=== PATIENT | female | born 1975 | race Caucasian/White ===

== ENCOUNTER → 2016-12-14 | Outpatient (CLI) | payer BC ==
[~2016-12-14] MED LIST: OXYC-57 PO
== END | disposition home or self-care (01) ==
LOC: C.PAPS 15:30
PROVIDERS: ATTEND Obstetrics & Gynecology
DX: Z01.419 Encounter for gynecological examination (general) (routine) without abnormal findings (principal)

== ENCOUNTER → 2016-12-29 | Outpatient (CLI) | payer BC ==
--- NOTE | 2017-01-01 13:47 | MAMMOGRAPHY REPORT ---
BILATERAL FIRST EVER DIGITAL SCREENING MAMMOGRAM TOMOSYNTHESIS WITH CAD: 12/29/2016 TECHNIQUE: Breast tomosynthesis in addition to standard 2D mammography was performed. Current study was also evaluated with a Computer Aided Detection (CAD) system. COMPARISON: No prior exams were available for comparison. BREAST COMPOSITION: The tissue of both breasts is heterogeneously dense, which may obscure small ma sses. FINDINGS: There is a small cluster of calcifications seen within the right lower inner quadrant, wh ich may be in association with a circumscribed oval 7 mm mass seen on the MLO tomosynthesis images, for which spot magnification views and possible breast ultrasound are recommended for further evalua tion. This could represent calcifications within a cyst. The remainder of both breasts are negative, without suspicious masses, calcifications, or areas of a rchitectural distortion noted. A few scattered bilateral benign-appearing calcifications are again noted. IMPRESSION: ACR BI-RADS CATEGORY 0: INCOMPLETE EVALUATION: NEED ADDITIONAL IMAGING EVALUATION Right lower inner quadrant calcifications which may be in association with a circumscribed mass, for which additional imaging evaluation is recommended. The patient will be called to schedule an appo intment. Approximately 10% of breast cancers are not detected with mammography. A negative mammographic repor t should not delay biopsy if a clinically suggestive mass is present. Sahara Abdul M.D. ah/:12/29/2016 16:03:28 Regional Construction Manager: Chanelle FLANAGAN)(José Manuel), [facility] letter sent: Addl Imaging 0 BI-RADS Code: ACR BI-RADS Category 0: Incomplete Evaluation: Need Additional Imaging Evaluation
== END | disposition home or self-care (01) ==
LOC: C.MAMM 09:32
PROVIDERS: ATTEND Obstetrics & Gynecology
DX: Z12.31 Encounter for screening mammogram for malignant neoplasm of breast (principal); R92.1 Mammographic calcification found on diagnostic imaging of breast; N63 Unspecified lump in breast

== ENCOUNTER → 2017-01-08 | Outpatient (CLI) | payer BC ==
--- NOTE | 2017-01-08 14:00 | MAMMOGRAPHY REPORT ---
UNILATERAL RIGHT DIGITAL DIAGNOSTIC MAMMOGRAM AND TARGETED RIGHT ULTRASOUND: 01/08/2017 CLINICAL HISTORY: Callback from screening mammography for a partially circumscribed mass and associa faina faint cluster of microcalcifications seen on baseline screening mammography. No family history of breast cancer. TECHNIQUE: Spot magnification right CC and ML views were obtained. COMPARISON: Comparison is made to exam dated: 12/29/2016 mammogram - [facility]. BREAST COMPOSITION: The tissue of the right breast is heterogeneously dense, which may obscure smal l masses. FINDINGS: There is a persistent 4 mm cluster of amorphous and smudgy microcalcifications on the spo t magnification right cc view. 1-2 of the calcifications appear to demonstrate layering on the spot magnification MLO view, suggesting benign milk of calcium. However, further evaluation with ultras ound was performed for the associated mass. No other suspicious microcavitation indications are see n in the visualized right breast. There are a few benign coarse calcifications. Targeted ultrasound was performed in the right lower inner quadrant. In the 4:00 right breast, 3 cm from the nipple, there is a lobulated anechoic cystic mass with internal echogenic reflectors, most likely representing associated microcalcifications, measuring 6.9 x 3.0 x 5.6 mm. This most likely represents a cyst and the calcifications most likely represent milk of calcium, however, not all th e calcifications layer on the MLO view. Therefore, definitive characterization with ultrasound guid ed cyst aspiration and/or core needle biopsy is recommended. At the time of targeted ultrasound in the lower inner quadrant of the right breast, the patient poin faina out a mass she was feeling in the right upper outer quadrant. Therefore additional scanning was performed in the 10:00 right breast in the area of lump pointed out by the patient. On palpation, there is an ovoid 2 cm firm mass. On ultrasound, there is dense fibroglandular tissue without a zulay picious solid or cystic mass. IMPRESSION: ACR BI-RADS CATEGORY 4A: LOW SUSPICION FOR MALIGNANCY, TARGETED ULTRASOUND ACR BI-RADS CATEGORY 4A: LOW SUSPICION FOR MALIGNANCY 1. Ultrasound guided cyst aspiration and/or core needle biopsy is recommended for a probable 7 mm c yst with associated milk of calcium/fibrocystic change identified in the 4:00 right breast on ultras ound, thought to correlate with the mammographic mass with associated clustered microcalcifications identified on the patient's baseline screening mammogram. 2. The palpable lump in the upper outer quadrant of the left breast is thought to represent normal dense fiber glandular tissue seen on ultrasound. There is no targeted sonographic evidence of laura de la cruz. Clinical follow-up and continued clinical monitoring is recommended, as biopsy of a clinical ly suspicious mass should not be precluded by negative imaging. These results and recommendations were discussed with the patient at the time of the exam. She tent atively scheduled the right 4:00 breast ultrasound guided cyst aspiration and/or core needle biopsy prior to leaving our department. Approximately 10% of breast cancers are not detected with mammography. A negative mammographic repor t should not delay biopsy if a clinically suggestive mass is present. Maria Ines Herrera M.D. ay/:01/08/2017 10:46:32 Store Hand: Chanelle FLANAGAN)(José Manuel), [facility] letter sent: Abnormal 4/5 BI-RADS Code: ACR BI-RADS Category 4A: Low Suspicion For Malignancy Ultrasound BI-RADS: ACR BI-RADS Category 4A: Low Suspicion For Malignancy
== END | disposition home or self-care (01) ==
LOC: C.MAMM 10:13
PROVIDERS: ATTEND Obstetrics & Gynecology
DX: R92.0 Mammographic microcalcification found on diagnostic imaging of breast (principal); N63 Unspecified lump in breast

== ENCOUNTER → 2017-01-18 | Outpatient (CLI) | payer BC ==
--- NOTE | 2017-01-18 12:48 | MAMMOGRAPHY REPORT ---
UNILATERAL RIGHT DIGITAL DIAGNOSTIC MAMMOGRAM: 01/18/2017 CLINICAL HISTORY: Status post aspiration of the right 4:00 breast mass. TECHNIQUE: Postprocedural right CC and ML views were obtained. COMPARISON: Comparison is made to exams dated: 01/08/2017 ultrasound, 01/08/2017 mammogram, and 017 mammogram - [facility]. BREAST COMPOSITION: The tissue of the right breast is heterogeneously dense, which may obscure smal l masses. FINDINGS: The previously seen mass in the right lower inner quadrant is decreased in size and no aliya macie clearly evident after aspiration of the right 4:00 breast mass. Some residual calcifications ar e still seen in the region of the cyst aspiration. No significant postbiopsy hematoma is seen. IMPRESSION: POST PROCEDURE IMAGING FOR MARKER PLACEMENT Some residual calcifications still present in the right lower inner quadrant status post aspiration of the right 4:00 breast mass. Cytology results are pending. Pending benign cytology results, calli mmend follow-up diagnostic tomosynthesis mammogram and possible ultrasound of the right breast in 6 months. Approximately 10% of breast cancers are not detected with mammography. A negative mammographic repor t should not delay biopsy if a clinically suggestive mass is present. Sahara Abdul M.D. ah/:01/18/2017 11:54:16 Sulphate Tester: Avril FLANAGAN)(José Manuel), [facility] BI-RADS Code: Post Procedure Imaging For Marker Placement
--- NOTE | 2017-01-18 12:48 | MAMMOGRAPHY REPORT ---
ASPIRATION RIGHT BREAST: 01/18/2017 CLINICAL HISTORY: Right 4:00 cyst with associated calcifications. PATIENT CONSENT: The procedure and risks of ultrasound-guided cyst aspiration were discussed in full with the patient. Both oral and written consents were obtained. PROCEDURE DESCRIPTION: With ultrasound guidance, aseptic technique, and 1% lidocaine as a local anes thetic, the mass of concern in the right 4:00 breast was aspirated to near-completion. A small amou nt of pink fluid was obtained and sent to cytology for analysis. Direct pressure was applied to the site immediately post procedure and hemostasis was achieved. The patient tolerated the procedure w ithout complication. She was given wound care instructions. Postprocedural mammograms were obtaine d; see separate report for details. COMPARISON: Comparison is made to exams dated: 01/18/2017 mammogram, 01/08/2017 ultrasound, 01/08/2017 mammogram, and 12/29/2016 mammogram - [facility]. IMPRESSION: ASPIRATION Ultrasound guided aspiration of the right 4:00 breast cyst with associated calcifications. The aspi rated fluid was sent to cytology for analysis. Pending benign cytology results, recommend follow-up diagnostic tomosynthesis mammograms and possible ultrasound in 6 months. Sahara Abdul M.D. ah/:01/18/2017 11:51:30 Attending Technologist: Avril FLANAGAN)(M), [facility] Peanut Separator: Sahara Abdul MD, [facility]
== END | disposition home or self-care (01) ==
LOC: C.MAMM 10:59
PROVIDERS: ATTEND Obstetrics & Gynecology
DX: R92.1 Mammographic calcification found on diagnostic imaging of breast (principal); N60.01 Solitary cyst of right breast

== ENCOUNTER → 2017-07-09 | Outpatient (CLI) | payer BC ==
[2017-07-09 13:03] LABS: BASO % 0.3 %; BASO ABS # 0.03 K/uL (0-0.2); COMPLETE YES; EOS % 1.7 %; HEMATOCRIT 39.1 % (37-47); IG% 0.3 %; LYMPH ABS # 2.58 K/uL (1.2-3.4); MEAN CELL VOLUME 88.5 fL (80-100); MEAN CORPUSCULAR HEMOGLOBIN 29.6 pg (25-34); MEAN CORPUSCULAR HGB CONC 33.5 g/dl (32-36); MEAN PLATELET VOLUME 10.1 fL (7.4-10.4); MONO % 6.9 %; NEUT % 63.8 %; PLATELET COUNT 404 K/uL (130-400); RED BLOOD COUNT 4.42 M/uL (4.2-5.4); WHITE BLOOD COUNT 9.57 K/uL (4.8-10.8)
[2017-07-09 13:46] LABS: CHOLESTEROL/HDL RATIO 3.7; THYROID STIMULATING HORMONE 2.47 uIu/ml (0.300-4.500)
== END | disposition home or self-care (01) ==
LOC: C.LABMFLN 07:11
PROVIDERS: ATTEND Internal Medicine
DX: E78.5 Hyperlipidemia, unspecified (principal); R53.83 Other fatigue

== ENCOUNTER → 2017-07-23 | Outpatient (CLI) | payer BC ==
--- NOTE | 2017-07-23 13:33 | MAMMOGRAPHY REPORT ---
BILATERAL DIGITAL DIAGNOSTIC MAMMOGRAM TOMOSYNTHESIS WITH CAD AND TARGETED LEFT ULTRASOUND: 07/23/2017 CLINICAL HISTORY: 42-year-old woman presents for follow-up in the right breast, for a small cluster o f microcalcifications thought to be associated with a cyst that was previously aspirated and yielded benign cytology results. Previous palpable concern in the left breast. TECHNIQUE: Bilateral breast spot magnification right CC and ML views were also obtained. Tomosynthes is in addition to standard 2D mammography was performed. Current study was also evaluated with a Comp uter Aided Detection (CAD) system. COMPARISON: Comparison is made to exams dated: 01/18/2017 aspiration, 01/18/2017 mammogram, 01/08/2017 ultrasound, 01/08/2017 mammogram, and 12/29/2016 mammogram - [facility]. BREAST COMPOSITION: The tissue of both breasts is heterogeneously dense, which may obscure small mas ses. FINDINGS: There is a 3 mm cluster of round and punctate microcalcifications in the lower inner anter ior right breast. No nodularity or mass is currently seen associated with these benign-appearing ford rocalcifications. Some demonstrate layering on the spot magnification MLO view, suggesting benign mi lk of calcium. This cluster of calcifications has not significantly changed in number or distributio n when comparing to the prior spot magnification views. This most likely represents benign fibrocyst ic change. However, there is a new cluster of faint amorphous and punctate microcalcifications in the upper oute r middle one third of the right breast that is increasingly conspicuous comparing to the prior mammog pelon. In retrospect it may have been present. It currently measures 9.3 mm in maximum dimension. T his cluster microcalcifications does not demonstrate layering and is indeterminate. Definitive jordon cterization with a stereotactic guided biopsy is recommended. An area of possible architectural distortion in the far posterior left breast, along the posterior ni pple line on the MLO view effaced with an additional spot compression tomosynthesis view but further evaluation with ultrasound was also performed in the left breast. No other suspicious calcifications , obvious mass or other areas of architectural distortion are identified bilaterally. Targeted ultrasound was performed in the 2:00 through 4:00, retroareolar and 8:00 through 10:00 axes of the left breast. A few scattered cysts and sonographically normal tissue are identified without e vidence of a suspicious solid or cystic mass. IMPRESSION: ACR BI-RADS CATEGORY 4: SUSPICIOUS, TARGETED ULTRASOUND ACR BI-RADS CATEGORY 4: SUSPICIO US 1. Right breast stereotactic guided biopsy is recommended for a newly visualized 9 mm cluster of pun ctate and amorphous microcalcifications in the upper outer middle one third of the breast. 2. Stable 3 mm cluster of microcalcifications in the lower inner anterior right breast, some of whic h demonstrate layering and were thought to be associated with a benign cyst that had been previously aspirated. Pending benign pathology results from the right breast stereotactic guided biopsy, anothe r six-month follow-up diagnostic mammogram including spot magnification views is read made to to ensu re longer stability. 3. An area of possible architectural distortion in the far posterior left breast, along the posterio r nipple line effaced with an additional spot compression MLO tomosynthesis view. No suspicious sono graphic correlate was identified. This most likely represented normal overlapping tissue. However, pending benign pathology results from the right breast stereotactic biopsy, recommend six-month follo w-up diagnostic tomosynthesis mammograms and possible ultrasound . These results and recommendations were discussed with the patient at the time of the exam. She tenta tively scheduled the right breast stereotactic biopsy prior to leaving our department. Approximately 10% of breast cancers are not detected with mammography. A negative mammographic report should not delay biopsy if a clinically suggestive mass is present. Maria Ines Herrera M.D. ay/:07/23/2017 09:53:58 Food And Nutrition Services Supervisor: Wandy BOUCHER(Carmel)(José Manuel), [facility] letter sent: Abnormal 4/5 BI-RADS Code: ACR BI-RADS Category 4: Suspicious Ultrasound BI-RADS: ACR BI-RADS Category 4: Suspici ous
== END | disposition home or self-care (01) ==
LOC: C.MAMM 07:59
PROVIDERS: ATTEND Internal Medicine
DX: R92.0 Mammographic microcalcification found on diagnostic imaging of breast (principal)

== ENCOUNTER → 2017-11-07 | Outpatient (CLI) | payer BC ==
[~2017-11-07] MED LIST changes: +NAPROXEN PO; -OXYC-57 PO
--- NOTE | 2017-11-07 09:45 | DIAGNOSTIC IMAGING REPORT ---
PELVIC COMPLETE NON OB CLINICAL HISTORY: R10.2 PREOPERATIVE EVALUATION COMPARISON STUDY: None FINDINGS: The uterus measured 10.3 cm maximum. Heterogeneous myometrial echogenicity. 3.0 x 3.5 cm fundal fibroid.. The endometrial stripe measured 5 mm. The right ovary measured 3.4 x 2.9 cm. 2 cm exophytic cyst. Normal vascular flow.. The left ovary measured 3.3 x 3.0 cm. 3.3 cm complex left ovarian cyst versus partial hemorrhagic cyst. Normal vascular flow. There is no ultrasonographic evidence of ovarian torsion. It should be noted that ovarian torsion can be present with normal Doppler ultrasonographic findings. There was no evidence of pathologic free pelvic fluid. IMPRESSION: 1. Heterogeneous uterus with a 3.5 x 3.0 cm fundal fibroid. 2. 2 cm right ovarian hepatic cysts. 3. 3.3 cm complex versus partially hemorrhagic left ovarian cyst. The above report was generated using voice recognition software. It may contain grammatical, syntax or spelling errors. Electronically signed by: Andre Rios M.D. 11/07/2017 9:43 AM Dictated Date/Time: 11/07/2017 9:41 AM
== END | disposition home or self-care (01) ==
LOC: C.ULTRBC 08:21
PROVIDERS: ATTEND Obstetrics & Gynecology
DX: N83.201 Unspecified ovarian cyst, right side (principal)

== ENCOUNTER 2017-11-16 05:32 | Observation (INO) | payer BC ==
[2017-11-05 12:03] VITALS: BMI 27.0
--- NOTE | 2017-11-05 12:29 | PAT Medication Instructions ---
Service Date Nov 05, 2017. Current Home Medication List [Naproxen], 1 TAB PO Q12H PRN for police cadet Instructions For Your Scheduled Surgery - Contact your surgeon if you plan on taking: [Naproxen], 1 TAB PO Q12H PRN for RN NOTHING TO EAT OR DRINK AFTER MIDNIGHT THE NIGHT BEFORE SURGERY If you have any questions please call us at [phone] or [phone] or [phone]
[2017-11-05 13:33] LABS: BASO % 0.3 %; BASO ABS # 0.03 K/uL (0-0.2); EOS % 1.1 %; HEMATOCRIT 36.5 % (37-47); HEMOGLOBIN 12.6 g/dL (12.0-16.0); IG# 0.01 K/uL (0.00-0.02); LYMPH % 30.6 %; LYMPH ABS # 2.76 K/uL (1.2-3.4); MEAN CELL VOLUME 87.1 fL (80-100); MEAN CORPUSCULAR HEMOGLOBIN 30.1 pg (25-34); MEAN CORPUSCULAR HGB CONC 34.5 g/dl (32-36); MEAN PLATELET VOLUME 10.1 fL (7.4-10.4); MONO % 6.2 %; MONO ABS # 0.56 K/uL (0.11-0.59); NEUT % 61.7 %; NEUT ABS # 5.56 K/uL (1.4-6.5); PLATELET COUNT 406 K/uL (130-400); RED CELL DISTRIBUTION WIDTH CV 13.6 % (11.5-14.5); RED CELL DISTRIBUTION WIDTH SD 43.5 fL (36.4-46.3); WHITE BLOOD COUNT 9.02 K/uL (4.8-10.8)
[2017-11-05 13:50] LABS: CALCIUM 8.5 mg/dl (8.5-10.1); CREATININE 0.95 mg/dl (0.60-1.20); POTASSIUM 4.1 mmol/L (3.5-5.1)
[2017-11-16] VITALS (8 sets, daily range): BP systolic 118–142; BP diastolic 81–98; PULSE 57–84; TEMP 36.4–37; O2SAT 96–100; Ht 154.9 cm; Wt 66.1 kg
[~2017-11-16] VITALS: Ht 154.9 cm; Wt 66.1 kg
[2017-11-16] MEDS ORDERED: CEFAZOLIN 2000MG IV PUSH 10 ML IV SCH (06:00)
[2017-11-16] MEDS ORDERED: LACTATED RINGER'S 1000ML 1,000 ML IV SCH ×3 (06:00→13:00)
--- NOTE | 2017-11-16 06:59 | History & Physical Bridge Note ---
H&P Re-Evaluation Bridge Note: I have examined the patient, reviewed the History & Physical and in the interval since the performance of the History & Physical I have noted the following changes of clinical significance: Again, reviewed higher incidence of internal organ injury with severe endometriosis, especially
[2017-11-16] MEDS ORDERED: DEXAMETHASONE SOD INJ 4 MG/ML VIAL ONE (07:09)
[2017-11-16] MEDS ORDERED: ONDANSETRON INJ 2 MG/ML 2 ML VIAL ONE (07:09)
[2017-11-16] MEDS ORDERED: LIDOCAINE HCL 2% 2 ML VIAL (20MG/ML) ONE (07:09)
[2017-11-16] MEDS ORDERED: PROPOFOL IV EMULSION 10 MG/ML 20 ML VIAL IV ONE (07:09)
[2017-11-16] MEDS ORDERED: FENTANYL CITRATE INJ 50 MCG/1 ML 2 ML VIAL ONE ×3 (07:09→10:08)
[2017-11-16] MEDS ORDERED: MIDAZOLAM HCL 1 MG/ML 2ML VIAL ONE (07:10)
[2017-11-16] MEDS ORDERED: HYDROmorphone INJ 2 MG/ML SYR/VIAL ONE (07:10)
[2017-11-16] MEDS ORDERED: METHYLENE BLUE 0.5% 10 ML VIAL ONE (07:11)
[2017-11-16] MEDS ORDERED: BUPIVACAINE 0.5 % 5 MG/1 ML MPF 30ML VIAL ONE (07:11)
[2017-11-16] MEDS ORDERED: ACETAMINOPHEN 1000 MG/100 ML IV IV ONE (07:13)
[2017-11-16] MEDS ORDERED: PHENYLEPHRINE 100MCG/ML 5ML SYR IV PRN (07:30)
[2017-11-16] MEDS ORDERED: ATROPINE SULFATE 0.1 MG/ML 5ML SYR IV PRN (07:30)
[2017-11-16] MEDS ORDERED: ONDANSETRON INJ 2 MG/ML 2 ML VIAL IV PRN ×2 (07:30→10:45)
[2017-11-16] MEDS ORDERED: EpHEDrine SULFATE INJ 50 MG/ML AMP IV PRN (07:30)
[2017-11-16] MEDS ORDERED: KETAMINE HCL INJ 50 MG/ML 10 ML VIAL ONE (08:28)
[2017-11-16] MEDS ORDERED: KETOROLAC TROMETHAMINE 30 MG/ML VIAL ONE (10:20)
[2017-11-16] MEDS ORDERED: NEOSTIGMINE METHYLSULFATE 5 MG/5 ML SYR ONE (10:21)
[2017-11-16] MEDS ORDERED: GLYCOPYRROLATE INJ 0.2 MG/ML VIAL ONE (10:21)
[2017-11-16] MEDS ORDERED: TISSEEL FIBRIN SEALANT 10ML TOP ONE (10:23)
--- NOTE | 2017-11-16 10:32 | [facility] Operative Report ---
Operative Report Operative Date Nov 16, 2017. Pre-Operative Diagnosis Endometriosis and Female pelvic pain Post-Operative Diagnosis Endometriosis and Female pelvic pain Procedure(s) Performed Cystoscopy with Left stent placement Surgeon Dr. Luana Alonzo, Alli Calixto DO Labor Contractor Surgeon(s) None Estimated Blood Loss Minimal Findings Dilated left ureter with likely focal point on distal ureter approx 1-2 cm from the UO. No lesions or masses within the bladder. Specimens None Drains 6 x 26 Double J Stent on left. Anesthesia General Complication(s) None Disposition Stable in OR, care transferred back to Dr. Alonzo to complete the remainder of his procedure. Indications Intraoperative consult for difficulty dissection with dilated left ureter. Description of Procedure Intraoperative consult for urgent cystoscopy and stent placement. Patient found to have difficult anatomy with significant scar tissue. The left and right ureter had been identified during the dissection, but the left ureter was found to be severely dilated. In order to drain the left kidney as well as increase safety by assisting in identification of the left ureter, intraoperative consult was requested. Patient was under general anesthesia in the dorsal lithotomy position. The Patient had been prepped and draped in the regular sterile fashion. A timeout confirming the correct patient had been completed and documented. . A 30 degree Cystoscope was placed into the bladder and the entire bladder was examined. The UO's were identified. Mild squamous metaplasia was noted along the trigone. The left trigone appeared somewhat bulging and an open ended catheter was easily place into the UO. Approx. 1.5 cm proximal to the ureter oriface an considerable narrowing was appreciated with some difficulty advancing the catheter. A wire was then placed and once bypassed, the catheter was advanced. Intraabdominally, the catheter was identified to be within the left ureter. The catheter was advanced to the renal pelvis region and an significant hydronephrotic drip was appreciated. The wire was then left in place, the catheter removed, and a 6 x [26] Double J stent was placed on the left. With the stent in place, the bladder was emptied. The entire bladder was once again examined. No areas of concern were noted. Urine was seen discharging from the right ureter. With stent in place, urine was observed draining from the left ureteral stent. The bladder was left partially full. The scope was removed and a 16 Fr wilkinson catheter was placed and set to drainage. The patient was cleaned and care was transferred to Dr. Alonzo to complete his procedure and dissection. The patient was in stable condition under anesthesia having tolerated my portion of the procedure well with no complications. I was present and participated in all aspects of the procedure. I attest to the content of the Intraoperative Record and any orders documented therein. Any exceptions are noted below.
--- NOTE | 2017-11-16 10:41 | [facility] Post Operative Brief Note ---
Immediate Operative Summary Operative Date Nov 16, 2017. Pre-Operative Diagnosis Endometriosis and Female pelvic pain Post-Operative Diagnosis Severe Endometriosis and Female pelvic pain, Left Hydroureter Procedure(s) Performed Cystoscopy with Left stent placement Surgeon Dr. Luana Alonzo, Alli Calixto DO Sole Sewer Hand Surgeon(s) Dr. Alli Calixto Estimated Blood Loss Minimal Findings Consistent with Post-Op Diagnosis Specimens Uterus, tubes, Left ovary Drains Romano Anesthesia Type General Complication(s) none Disposition Accompanied Pt To Recover: no Disposition: Recovery Room / PACU
[2017-11-16] MEDS ORDERED: BISACODYL 10 MG SUPP PR PRN (10:45)
[2017-11-16] MEDS ORDERED: SIMETHICONE 80 MG CHEW PO PRN (10:45)
[2017-11-16] MEDS ORDERED: OXYCODONE/ACETAMINOPHEN 5-325 TAB PO PRN ×2 (10:45)
[2017-11-16] MEDS ORDERED: ACETAMINOPHEN 325 MG TAB PO PRN (10:45)
[2017-11-16] MEDS ORDERED: KETOROLAC TROMETHAMINE 15 MG/ML VIAL IV. PRN (10:45)
[2017-11-16] MEDS ORDERED: MAGNESIUM HYDROXIDE SUSP 30 ML UDC PO PRN (10:45)
[2017-11-16] MEDS ORDERED: PROMETHAZINE HCL INJ 25 MG in SODIUM CHLORIDE 0.9% 50ML 50 ML IV PRN (10:45)
[2017-11-16] MEDS ORDERED: MEPERIDINE HCL 50 MG/ML CARP IV PRN ×2 (10:45)
[2017-11-16] MEDS ORDERED: PROMETHAZINE HCL INJ 12.5 MG in SODIUM CHLORIDE 0.9% 50ML 50 ML IV PRN (10:45)
[2017-11-16] MEDS ORDERED: IBUPROFEN 600 MG TAB PO PRN (10:45)
[2017-11-16] MEDS ORDERED: ZOLPIDEM TARTRATE 5 MG TAB PO PRN (10:45)
[2017-11-16] MEDS ORDERED: OXYC-57 PO (10:46)
[2017-11-16] MEDS ORDERED: MTR600X PO (10:46)
--- NOTE | 2017-11-16 10:46 | Discharge Instructions ---
Discharge Instructions Date of Service Nov 16, 2017. Admission Reason for Admission: Endometriosis, Female Pelvic Pain Discharge Discharge Diagnosis / Problem: endometriosis, menorrhagia Discharge Goals Goal(s): Routine recovery after surgery Activity Recommendations Activity Limitations: per Instructions/Follow-up section . Instructions / Follow-Up Instructions / Follow-Up POST OPERATIVE: BOWEL FUNCTION/MEDICATIONS: 1. Constipation pain and discomfort are the most common complaints 5-7 days after surgery. Points 2-6 address the things that can help. 2. Chewing gum can help stimulate the gut and help improve digestion and motility. 3. Milk of Magnesia 1-2 times per day until return of bowel function. 4. Colace is a stool softener that helps. Taking this 2-3 times per day until bowel function returns to normal is highly recommended. 5. Dulcolax is a laxative that may be used if several days have passed without a bowel movement. Alternatively Miralax may be used daily instead. 6. Drink plenty of fluids as this will also reduce constipation. 7. Narcotic pain medications will be prescribed by your physician. They are safe to use and we encourage you to use them. If you are not allergic, ibuprofen will also be prescribed. Many patients will be able to transition off of the narcotic medications to ibuprofen by postoperative day 3. ACTIVITY RECOMMENDATIONS: 1. Get plenty of rest and listen to your body. If you are tired, take a nap. 2. You may shower, but do not take a tub bath until you see your doctor at the 2 week post operative visit. 3. Absolutely NO intercourse and nothing in the vagina until you are examined by your doctor at the 6 week visit. At that visit it will be determined when such activities can be resumed. This can range from 6-12 weeks after your surgery depending on healing time. 4. The main physical activity in the first week should be walking. By the second week you can slowly increase activity. There are no limits on walking up and down stairs. 5. Do not lift more than 5-10 lbs for 4 weeks. Remember the "one-handed rule", i.e. if you can lift something with only one hand it's likely okay. 6. Minimize forming yardage control operator like vacuuming and exercising for 4 weeks. "Overdoing it" can lead to incisions not healing, pain and vaginal bleeding , so again, listen to your body. 7. Driving can be resumed when you feel able. Do not drive within 24 hours of taking a narcotic medication. EXPECTATIONS: 1. Vaginal spotting, bleeding and discharge are common after surgery. There may even be an odor to the discharge which is often related to sutures used in the vagina. If you experience heavy vaginal bleeding, call the office number day or night [phone]. 2. Bladder discomfort is common after surgery from the catheter. This usually resolves in 1-2 weeks. 3. By the end of the 3rd or 4th week you should be feeling much better. It may take up to 6 weeks for your energy levels to return to normal. 4. Narcotic medications have side effects such as: dizziness, headache, nausea and/or vomiting. If you suspect your pain medication is causing problems, call our office and we may be able to prescribe an alternate medication. 5. The skin incisions are often covered with a liquid bandage. This will gradually peel off over time. CALL THE OFFICE IF YOU HAVE ANY OF THE FOLLOWIN. Temperature of 101 degrees or higher. 2. Severe abdominal or pelvic pain not relieved by pain medication. 3. Persistent nausea or vomiting. 4. Increased pain with urination or difficulty urinating. 5. Bright red bleeding that soaks more than 1 pad per hour. CONTACT PHONE NUMBERS: Main Office: [phone] Surgical Nurse: [phone] extension [phone] Avoid all tobacco products. If you need help to stop smoking, call [place]'s FREE QUITLINE at . This is a free call. Current Hospital Diet Patient's current hospital diet: Discharge Diet Recommended Diet: Regular Diet Procedures Procedures Performed: TLH, removal of left ovary. Bilateral salpingectomy Cystoscopy with Left stent placement Pending Studies Studies pending at discharge: no Medical Emergencies . Who to Call and When: Medical Emergencies: If at any time you feel your situation is an emergency, please call 911 immediately. . Non-Emergent Contact Non-Emergency issues call your: Wearing Apparel Folder . . "Provider Documentation" section prepared by Nate Alozno. . VTE Core Measure Inpt VTE Proph given/why not?: Tona López, SCD's
[2017-11-16] MEDS ORDERED: SCOPOLAMINE 1.5 MG TDSY TD ONE ×2 (11:04→11:15)
[2017-11-16] MEDS: HYDROmorphone INJ 2 MG/ML SYR/VIAL IV PRN ×6 (11:05→11:30)
[2017-11-16] MEDS ORDERED: PROMETHAZINE HCL INJ 6.25 MG in SODIUM CHLORIDE 0.9% 50ML 50 ML IV ONE (11:15)
--- NOTE | 2017-11-16 12:19 | Anesthesiology Progress Note ---
Anesthesia Post Op Note Date & Time Nov 16, 2017 at 12:18 Vital Signs Pain Intensity: 3 Vital Signs Past 12 Hours Date Time Temp Pulse Resp B/P (MAP) Pulse Ox O2 Delivery O2 Flow Rate FiO2 11/16/17 12:03 63 16 100 11/16/17 12:03 61 16 11/16/17 12:01 153/84 11/16/17 11:58 52 14 98 11/16/17 11:58 53 14 11/16/17 11:56 143/95 11/16/17 11:53 59 15 11/16/17 11:53 58 15 100 11/16/17 11:51 158/94 11/16/17 11:48 36.5 55 17 139/90 (101) 100 Nasal Cannula 2 11/16/17 11:48 68 16 100 11/16/17 11:48 68 16 11/16/17 11:45 139/90 11/16/17 11:43 68 20 11/16/17 11:43 68 20 99 11/16/17 11:40 144/95 11/16/17 11:38 54 10 100 11/16/17 11:38 53 10 11/16/17 11:35 142/95 11/16/17 11:33 60 17 100 11/16/17 11:33 60 17 11/16/17 11:31 142/91 11/16/17 11:28 67 15 18 11:28 69 15 100 11/16/17 11:26 145/95 18 11:23 55 14 11/16/17 11:23 56 14 100 11/16/17 11:22 67 15 100 11/16/17 11:22 65 15 11/16/17 11:20 152/94 11/16/17 11:17 64 14 100 11/16/17 11:17 63 14 11/16/17 11:15 149/93 11/16/17 11:12 63 12 11/16/17 11:12 66 12 100 18 11:11 148/89 18 11:07 63 21 100 11/16/17 11:07 63 21 18 11:06 129/99 11/16/17 11:02 66 10 18 11:02 68 10 100 11/16/17 11:01 156/93 11/16/17 10:57 68 14 11/16/17 10:57 67 14 100 11/16/17 10:55 158/100 11/16/17 10:52 72 18 157/90 100 11/16/17 10:52 37.0 73 12 157/90 100 Oxymask 10 11/16/17 10:52 71 18 11/16/17 06:21 37.0 68 18 125/88 (100) 98 Room Air Notes Mental Status: alert / awake / arousable, participated in evaluation Pt Amnestic to Procedure: Yes Nausea / Vomiting: adequately controlled Pain: adequately controlled Airway Patency, RR, SpO2: stable & adequate BP & HR: stable & adequate Hydration State: stable & adequate Anesthetic Complications: no major complications apparent
--- NOTE | 2017-11-16 12:29 | OPERATIVE REPORT ---
DATE OF OPERATION: 11/16/2017 PREOPERATIVE DIAGNOSES: Endometriosis, menorrhagia, female pelvic pain. POSTOPERATIVE DIAGNOSIS: Severe endometriosis, female pelvic pain, menorrhagia, left hydroureter. PROCEDURE: Total laparoscopic hysterectomy, left salpingo-oophorectomy, right salpingectomy, left ureterolysis, cystoscopy. Additionally, left ureter stent placed by urology. SURGEON: Dr. Alonzo. INDUSTRIAL SPRAYPAINTER: Durga. ESTIMATED BLOOD LOSS: 80 mL. FINDINGS: Severe endometriosis with left hydroureter. SPECIMENS: Uterus, tubes, left ovary. DRAINS: Romano catheter. ANESTHETIC: General. COMPLICATIONS: None. DISPOSITION: Recovery room. OPERATION AND FINDINGS: DESCRIPTION OF PROCEDURE: Carolann was given a general anesthetic, prepped and draped in dorsal lithotomy position in [facility]. IV Ancef given preoperatively and compression stockings applied to her legs. After receiving a general anesthetic bladder was drained with a Romano catheter, VCare sewn into her cervix in the usual fashion. Gloves changed and a supraumbilical incision was made with scalpel. Using open dissection technique, we did a cut down through the subcutaneous fat through the fascia, splitting the rectus muscles and entering the peritoneal cavity without difficulty. Blunt-tipped Lesley trocar placed, balloon inflated with air to stabilize the port and then 10 mm laparoscope used to visualize, CO2 insufflated the abdomen. FINDINGS: Upper abdomen normal, no sign of visceral organ injury. Deep Trendelenburg position obtained. The patient had severe stage IV endometriosis, specifically there were adhesions along the bladder flap line that were severe and thick as well as colonic adhesions attached to the bladder as well. Colonic adhesions were also present on the left side and left ovary was enlarged and abnormal. It appeared to be endometriotic. The right adnexa appeared normal. There was endometriosis in the cul-de-sac as well, primarily in the back wall of the uterus. The right ureter coursed the normal path. We then placed 3 robotic ports, 2 on the right side, 1 on the left and a left upper quadrant accessory port 11 mm bladeless. Robot docked, arm #1 was monopolar jay, arm #2 was bipolar [place], arm #3 was ProGrasp. The procedure was begun first on the right side as the left side was so densely adherent and we felt we made progress on the right side we would increase mobility. Identified the ureter on the right side we then removed the fallopian tube on that right side through the accessory port after removing. The blood supply distal to the right ovary was coagulated with the bipolar [place] then cut with monopolar jay. Same process with the round ligament although this was tied up into the bladder flap as well as we were careful in this respect. We then sharply dissected the bladder flap on the right side away from the uterus. After careful and methodical dissection, I was able to find the cervical vaginal plane and dissected sharply away and then I was able to identify the vessels on the uterine vessels on the right side. Bladder had been dissected away so was able to coagulate the vessels with the bipolar [place] and cut with the monopolar jay. At this stage, I made the decision to remove the left adnexa because of the involvement. The left ureter could not be seen left ovary also enlarged. I did lyse some of the colonic adhesions bluntly on the left side; however, when I did make initially a broad ligament incision lateral to the ovarian artery and vein; however, I could not see the ureter through this so we made a small opening of the peritoneum on the medial side of the broad ligment window in this area and then we identified what was the ureter on the left side. It was significantly dilated. This was significant part of our dissection, following the path of the left ureter, thus I believe her left hydroureter was a result of severe endometriosis. We did track the ureter down to the spot where endometriosis was quite thick and had been present, this area was tied up in adhesive disease which I had freed up earlier. Urology was called, Dr. Calixto, and they placed a stent on that left side which then actually subsequently drained that left ureter so the diameter was less enlarged. Because of now certain location of this, I was able to coagulate the blood supply proximal to the left ovary with the bipolar [place] and then cut with monopolar jay and then carefully dissected away the ovary from the sidewall, coagulated the round ligament, cut this and was able to skeletonize the left uterine vessels. Note, to the best of our ability we removed and freed all the adhesive disease and endometriosis on this left side. Bladder flap was sharply dissected away as adhesions would be described as concrete thick at this stage. At this stage, we had coagulated both the uterine pedicles, I was able to make an anterior colpotomy. The procedure was then continued by completing the colpotomy with the monopolar jay and then removing the uterus and the left adnexa through the vagina. A glove and sponge were placed into the vagina for pneumoperitoneum. After generous irrigation and suction, IV methylene blue was given. It should be noticed hemostasis was excellent at this stage and we were nowhere near that left stent. We then did an instrument exchange, arm #1 became the nicolas needle delivery driver/supervisor, arm #2 became the cobra. We then passed a 12 inch 2-0, 90-day V-Loc suture. The cuff was closed from left to right, right back and right to left ensuring at least 1 cm full thickness bites of vaginal mucosa. We closed from left to right. Suture was then cut so there was no tail and needle removed through the accessory port. After generous irrigation and suction, we did apply 10 mL of Tisseel for hemostasis. We then performed cystoscopy and was able to visualize there were no stitches in the bladder as additionally the right ureter had good strong jets of bluish green dye. The stent was visualized in the left ureter as well. Cystoscope removed and a new Romano catheter placed. Sponge and a glove removed from the vagina. Robot undocked. Instruments removed, gas allowed to escape. Incisions injected with 0.5% Marcaine. Fascia closed with 0 Vicryl in the umbilical and left upper quadrant incision, 4-0 subcuticular Monocryl and closed with Dermabond as well. It should be noted this case took approximately 3 hours due to the difficulty of dissection of endometriosis and the finding of left hydroureter. The patient was sent to recovery room in stable condition. I attest to the content of the Intraoperative Record and any orders documented therein. Any exceptions are noted below. KELL
[2017-11-16] MEDS ORDERED: KETOROLAC TROMETHAMINE 30 MG/ML VIAL IV. PRN (12:45)
[2017-11-16] MEDS ORDERED: IV FLUIDS COMPLETED PRN (12:45)
[2017-11-16] MEDS ORDERED: ROCURONIUM BROMIDE 10 MG/ML 5 ML VIAL IV ONE (14:49)
[2017-11-16] MEDS ORDERED: DOCUSATE SODIUM 100 MG CAP PO SCH (21:00)
--- NOTE | 2017-11-20 08:28 | DISCHARGE SUMMARY ---
Carolann had a total laparoscopic hysterectomy and left salpingo-oophorectomy on 11/16/2016. Operative note is in the chart. It should be noted that she had severe endometriosis and a left ureter stent was placed by urology as she had hydronephrosis and hydroureter related to the endometriosis. Her course in the hospital was uneventful. She was discharged in the same day of surgery. Later in the day of surgery, she was ambulating, tolerating an oral diet, voiding well, pain was well controlled and had no vaginal bleeding. At this stage, she was discharged home given followup both with Dr. Alonzo and with urology to have the stent removed at a later date.
== END 2017-11-16 18:53 | disposition home or self-care (01) ==
LOC: C.ACU 05:32 → C.MS4N 06:10 → ENRESERV 11:38
PROVIDERS: ADMIT Obstetrics & Gynecology; ATTEND Obstetrics & Gynecology
DX: N80.2 Endometriosis of fallopian tube (principal); N83.8 Other noninflammatory disorders of ovary, fallopian tube and broad ligament; N92.0 Excessive and frequent menstruation with regular cycle; R10.2 Pelvic and perineal pain; N13.4 Hydroureter; E78.00 Pure hypercholesterolemia, unspecified; N94.3 Premenstrual tension syndrome; F17.200 Nicotine dependence, unspecified, uncomplicated; Z88.1 Allergy status to other antibiotic agents
CPT/HCPCS: 52332; 58571; S2900

== ENCOUNTER → 2017-12-07 | Outpatient (CLI) | payer BC ==
[~2017-12-07] MED LIST changes: +MTR600X PO; +OXYC-57 PO
--- NOTE | 2017-12-07 12:43 | DIAGNOSTIC IMAGING REPORT ---
ULTRASOUND KIDNEYS AND BLADDER CLINICAL HISTORY: Hydronephrosis. COMPARISON STUDY: No priors. TECHNIQUE: Real-time, grayscale, and color flow sonography of the kidneys and bladder is performed. Images are reviewed in the transverse and longitudinal planes. FINDINGS: Kidneys: There is asymmetric cortical atrophy of the left kidney. The right kidney measures 11.8 x 5.3 x 5.5 cm and the left kidney measures 9.9 x 4.4 x 3.3 cm. There is fullness of the right renal collecting system. Moderate hydronephrosis is seen on the left. A left ureteral stent is in place. No shadowing renal calculi are identified. There is no sonographic evidence of contour deforming renal mass lesion. No perinephric fluid is identified. Bladder: The bladder is normal in appearance. A right ureteral jet is identified. The end of a left ureteral stent is noted. IMPRESSION: 1. There is asymmetric cortical atrophy of the left kidney as compared to the right. 2. There is moderate left hydronephrosis with a left ureteral stent in place. 3. Mild fullness is seen in the right renal collecting system without ottoniel hydronephrosis. 4. The bladder was normal as visualized. Electronically signed by: Chris Hill M.D. 12/07/2017 12:41 PM Dictated Date/Time: 12/07/2017 12:39 PM
== END | disposition home or self-care (01) ==
LOC: C.ULTR 11:13
PROVIDERS: ATTEND Urology
DX: N13.30 Unspecified hydronephrosis (principal); N26.1 Atrophy of kidney (terminal); Z96.0 Presence of urogenital implants

== ENCOUNTER → 2017-12-13 | Outpatient (CLI) | payer BC ==
[2017-12-13 10:14] LABS: HEMATOCRIT 35.5 % (37-47); HEMOGLOBIN 12.2 g/dL (12.0-16.0); MEAN CORPUSCULAR HEMOGLOBIN 29.9 pg (25-34); MEAN PLATELET VOLUME 9.4 fL (7.4-10.4); PLATELET COUNT 382 K/uL (130-400); RED CELL DISTRIBUTION WIDTH CV 13.9 % (11.5-14.5); RED CELL DISTRIBUTION WIDTH SD 44.4 fL (36.4-46.3); WHITE BLOOD COUNT 7.95 K/uL (4.8-10.8)
[2017-12-13 10:23] LABS: MEAN CORPUSCULAR HGB CONC 34.4 g/dl (32-36)
[2017-12-13 10:36] LABS: CREATININE 0.88 mg/dl (0.60-1.20)
== END | disposition home or self-care (01) ==
LOC: C.LAB1850 09:51
PROVIDERS: ATTEND Obstetrics & Gynecology
DX: G89.18 Other acute postprocedural pain (principal)

== ENCOUNTER → 2017-12-31 | Outpatient (CLI) | payer BC ==
[~2017-12-31] MED LIST changes: +CIPR-255 PO; +DIFLUCAN PO; +OXYC7.5T62 PO; +PHEN-775 PO
--- NOTE | 2017-12-31 11:26 | DIAGNOSTIC IMAGING REPORT ---
CHEST 2 VIEWS ROUTINE HISTORY: 42 years-old Female N13.30 Hydronephrosis preoperative exam. No acute chest complaints. COMPARISON: None available TECHNIQUE: PA and lateral views of the chest FINDINGS: Cardiac mediastinal and hilar silhouettes are within normal limits. No pneumothorax, pleural effusion, focal airspace consolidation or overt pulmonary edema. Bones of the chest appear grossly intact. The proximal portion of the left ureteral stent is noted within the left upper abdomen. IMPRESSION: No acute process. The above report was generated using voice recognition software. It may contain grammatical, syntax or spelling errors. Electronically signed by: Wes Fong M.D. 12/31/2017 11:25 AM Dictated Date/Time: 12/31/2017 11:24 AM
[2017-12-31 12:17] LABS: BASO % 0.5 %; BASO ABS # 0.04 K/uL (0-0.2); EOS % 2.1 %; EOS ABS # 0.18 K/uL (0-0.5); HEMATOCRIT 38.2 % (37-47); HEMOGLOBIN 13.2 g/dL (12.0-16.0); IG# 0.02 K/uL (0.00-0.02); LYMPH % 33.3 %; MEAN CELL VOLUME 87.2 fL (80-100); MEAN CORPUSCULAR HEMOGLOBIN 30.1 pg (25-34); MEAN CORPUSCULAR HGB CONC 34.6 g/dl (32-36); MONO % 6.4 %; MONO ABS # 0.54 K/uL (0.11-0.59); NEUT % 57.5 %; NEUT ABS # 4.83 K/uL (1.4-6.5); PLATELET COUNT 439 K/uL (130-400); RED CELL DISTRIBUTION WIDTH CV 14.1 % (11.5-14.5); RED CELL DISTRIBUTION WIDTH SD 44.8 fL (36.4-46.3); WHITE BLOOD COUNT 8.41 K/uL (4.8-10.8)
[2017-12-31 12:48] LABS: ALBUMIN 3.8 gm/dl (3.4-5.0); ALT/SGPT 17 U/L (12-78); AST/SGOT 14 U/L (15-37); BLOOD UREA NITROGEN 14 mg/dl (7-18); CARBON DIOXIDE 25 mmol/L (21-32); CREATININE 0.84 mg/dl (0.60-1.20); GLUCOSE 87 mg/dl (70-99); POTASSIUM 3.7 mmol/L (3.5-5.1); SODIUM 136 mmol/L (136-145)
[2017-12-31 12:50] LABS: ALKALINE PHOSPHATASE 74 U/L (45-117); TOTAL PROTEIN 7.3 gm/dl (6.4-8.2)
== END | disposition home or self-care (01) ==
LOC: C.CPL 10:46
PROVIDERS: ATTEND Urology
DX: N13.30 Unspecified hydronephrosis (principal); I49.9 Cardiac arrhythmia, unspecified

== ENCOUNTER → 2018-01-03 | Day surgery (SDC) | payer BC ==
[2017-12-31 15:51] VITALS: BMI 27.0
[~2018-01-03] VITALS: Ht 152.4 cm; Wt 64.5 kg
[~2018-01-03] MED LIST changes: +ATROPINE SULFATE 0.1 MG/ML 5ML SYR IV PRN; +CIPROFLOXACIN / D5W 400 MG IV SCH; +Cysto-Conray II 17.2% 250ML BOTTLE ONE; +DEXAMETHASONE SOD INJ 4 MG/ML VIAL ONE; +EpHEDrine SULFATE INJ 50 MG/ML AMP IV PRN; +FENTANYL CITRATE INJ 50 MCG/1 ML 2 ML VIAL IV PRN; +FENTANYL CITRATE INJ 50 MCG/1 ML 2 ML VIAL ONE; +HYDROmorphone INJ 1 MG/ML SYR IV PRN; +LABETALOL HCL IV 5 MG/ML 20ML IV PRN; +LACTATED RINGER'S 1000ML 1,000 ML IV SCH; +LIDOCAINE HCL 2% 2 ML VIAL (20MG/ML) ONE; +MEPERIDINE HCL 25 MG/ML CARP IV PRN; +MIDAZOLAM HCL 1 MG/ML 2ML VIAL ONE; -NAPROXEN PO; +ONDANSETRON INJ 2 MG/ML 2 ML VIAL IV PRN; +ONDANSETRON INJ 2 MG/ML 2 ML VIAL ONE; -OXYC-57 PO; +OXYCODONE/ACETAMINOPHEN 7.5-325 TAB PO PRN; +PROPOFOL IV EMULSION 10 MG/ML 20 ML VIAL IV ONE
[2018-01-03 12:33] VITALS: BP 125/84; PULSE 68; TEMP 36.6; O2SAT 99; Ht 152.4 cm; Wt 64.5 kg
--- NOTE | 2018-01-03 13:27 | History & Physical Bridge Note ---
H&P Re-Evaluation Bridge Note: I have examined the patient, reviewed the History & Physical and in the interval since the performance of the History & Physical I have noted the following changes of clinical significance: No changes noted
--- NOTE | 2018-01-03 13:49 | Discharge Instructions ---
Discharge Instructions Date of Service Jan 03, 2018. Admission Reason for Admission: Hydronephrosis Discharge Discharge Diagnosis / Problem: Obstructive uropathy Discharge Goals Goal(s): Decrease discomfort, Improve function Activity Recommendations Activity Limitations: per Instructions/Follow-up section Lifting Limitations: gradually increase as tolerated Exercise/Sports Limitations: gradually increase as tolerated Shower/Bathe: no limitations . Instructions / Follow-Up Instructions / Follow-Up May have blood in urine. May have pelvic discomfort. Call if any issues. Call if any fevers. Current Hospital Diet Patient's current hospital diet: Discharge Diet Recommended Diet: Regular Diet Procedures Procedures Performed: Bilateral retrogrades. Left ureteroscopy. Pending Studies Studies pending at discharge: no Medical Emergencies . Who to Call and When: Medical Emergencies: If at any time you feel your situation is an emergency, please call 911 immediately. . Non-Emergent Contact Non-Emergency issues call your: Primary Care Provider, Urologist Call Non-Emergent contact if: you have a fever, temperature is above 101, temperature is above 101.5, your pain is not controlled, your pain is worsening . . "Provider Documentation" section prepared by Alli Calixto,. .
--- NOTE | 2018-01-03 14:55 | [facility] Operative Report ---
Operative Report Operative Date Jan 03, 2018. Pre-Operative Diagnosis Obstructive Uropathy, History of endometrosis Post-Operative Diagnosis Same, lesion distal ureter. Procedure(s) Performed Cystoscopy with bilateral retrograde pyelogram. Left ureteroscopy, Biopsy lesion left ureter, stent exchange. Surgeon Durga Estimated Blood Loss Minimal Findings Left hydronephrosis with hydroureter. Specimens Biopsy distal ureter Drains 6 x 26 Double J Left Anesthesia Type General Complication(s) none Disposition Recovery Room / PACU Indications Left Hydronephrosis with recent surgery. Stent in place. Risks and benefits discussed at length with patient. Description of Procedure Patient was consented and brought back to the operating room. Patient was placed under anesthesia in the supine position and moved to the dorsal lithotomy position. Patient was prepped and draped in the regular sterile fashion. A time out was completed. A 30degree Cystoscope was placed into the bladder and the entire bladder was examined. The UO's were identified. The Right was cannulized with a catheter and a retrograde pyelogram was completed. No major issues or obstruction. The left stent was grasped and partially removed. A wire was then placed. A retrograde pyelogram was completed. Continued hydronephrosis. Moderate narrowing distal ureter with tortuosity. With the wire in place, a rigid ureteroscope was selected and taken into the left UO. This was taken to the area of narrowing. It was unable to bypass this area. Lesion was noted. May have been vascular or endometrial lesion. this was biopsied. The scope was removed after a second wire placed. A flexible ureteroscope was selected and taken into the left ureter. The entire pelvis and ureter on the left was examined. No masses, lesions, or bj of stricture were noted. It was taken to the distal ureter and multiple images of the lesion were taken. The scope was removed with the wire remaining in place. At this point, a 6 x [26] Double J stent was placed. It was confirmed with fluoroscopy. With the stent in place, the bladder was emptied. The scope was removed. The patient was cleaned, aroused from anesthesia, and transferred to the pacu in stable condition having tolerated the procedure well with no complications. I was present and participated in all aspects of the procedure. The patient will be monitored in the PACU until transferred. I attest to the content of the Intraoperative Record and any orders documented therein. Any exceptions are noted below.
--- NOTE | 2018-01-03 15:21 | Anesthesiology Progress Note ---
Anesthesia Post Op Note Date & Time Jan 03, 2018 at 15:21 Vital Signs Pain Intensity: 0 Vital Signs Past 12 Hours Date Time Temp Pulse Resp B/P (MAP) Pulse Ox O2 Delivery O2 Flow Rate FiO2 01/03/18 15:10 81 16 119/75 99 Room Air 01/03/18 15:01 36.5 83 16 120/72 96 Oxymask 10 01/03/18 12:33 36.6 68 18 125/84 (98) 99 Room Air Notes Mental Status: alert / awake / arousable, participated in evaluation Pt Amnestic to Procedure: Yes Nausea / Vomiting: adequately controlled Pain: adequately controlled Airway Patency, RR, SpO2: stable & adequate BP & HR: stable & adequate Hydration State: stable & adequate Anesthetic Complications: no major complications apparent
[2018-01-03 15:40] VITALS: BP 146/89; PULSE 71; TEMP 36.7; O2SAT 94
--- NOTE | 2018-01-03 15:45 | DIAGNOSTIC IMAGING REPORT ---
RETROGRADE INCLUDES KUB CLINICAL HISTORY: BILATERAL RETROGRADES LASER LITHOTRIPSY COMPARISON STUDY: No previous studies for comparison. FINDINGS: 150 seconds of fluoroscopic time was utilized. 5 intraprocedural fluoroscopic spot images are provided for interpretation. The first image demonstrates the proximal right ureter and right renal pelvis. No filling defects are visualized. There is slight blunting of the calyces. The second image demonstrates a dilated left ureter. The third image demonstrates a dilated left renal pelvis and collecting system with blunting of the calyces. There is a nephroureteral stent present. The fourth image demonstrates the proximal portion of the double pigtail nephroureteral stent. The left renal collecting system is less distended. The fifth image demonstrates the distal portion of a double-pigtail left-sided nephroureteral stent IMPRESSION: Intraoperative fluoroscopic spot images as described above. Electronically signed by: Thang Santana M.D. 01/03/2018 3:43 PM Dictated Date/Time: 01/03/2018 3:42 PM
[2018-01-03 16:10] VITALS: BP 142/79; PULSE 70; TEMP 36.4; O2SAT 96
== END | disposition home or self-care (01) ==
LOC: C.ACU 12:08
PROVIDERS: ATTEND Urology
DX: N13.9 Obstructive and reflux uropathy, unspecified (principal); N28.89 Other specified disorders of kidney and ureter; N13.30 Unspecified hydronephrosis; E78.00 Pure hypercholesterolemia, unspecified; E78.5 Hyperlipidemia, unspecified; F17.200 Nicotine dependence, unspecified, uncomplicated; J45.909 Unspecified asthma, uncomplicated; E66.3 Overweight

== ENCOUNTER → 2018-03-14 | Outpatient (CLI) | payer BC ==
[~2018-03-14] MED LIST changes: -ATROPINE SULFATE 0.1 MG/ML 5ML SYR IV PRN; -CIPROFLOXACIN / D5W 400 MG IV SCH; -Cysto-Conray II 17.2% 250ML BOTTLE ONE; -DEXAMETHASONE SOD INJ 4 MG/ML VIAL ONE; -EpHEDrine SULFATE INJ 50 MG/ML AMP IV PRN; -FENTANYL CITRATE INJ 50 MCG/1 ML 2 ML VIAL IV PRN; -FENTANYL CITRATE INJ 50 MCG/1 ML 2 ML VIAL ONE; -HYDROmorphone INJ 1 MG/ML SYR IV PRN; -LABETALOL HCL IV 5 MG/ML 20ML IV PRN; -LACTATED RINGER'S 1000ML 1,000 ML IV SCH; -LIDOCAINE HCL 2% 2 ML VIAL (20MG/ML) ONE; -MEPERIDINE HCL 25 MG/ML CARP IV PRN; -MIDAZOLAM HCL 1 MG/ML 2ML VIAL ONE; -ONDANSETRON INJ 2 MG/ML 2 ML VIAL IV PRN; -ONDANSETRON INJ 2 MG/ML 2 ML VIAL ONE; +OPTIRAY 320 IV PRN; -OXYCODONE/ACETAMINOPHEN 7.5-325 TAB PO PRN; -PHEN-775 PO; -PROPOFOL IV EMULSION 10 MG/ML 20 ML VIAL IV ONE
--- NOTE | 2018-03-14 10:36 | DIAGNOSTIC IMAGING REPORT ---
ABD/PELVIS IV CONTRAST ONLY CLINICAL HISTORY: 43 years-old Female presenting with endometriosis, left hydronephrosis, follow-up. TECHNIQUE: Multidetector CT of the abdomen and pelvis was performed after the administration of intravenous contrast. IV contrast: 92 mL of Optiray 320. A dose lowering technique was used consistent with the principles of ALARA (as low as reasonably achievable). COMPARISON: Renal ultrasound from 12/07/2017. CT DOSE (mGy.cm): The estimated cumulative dose is 413.98 mGy.cm. FINDINGS: Hotbed Lever Operator topogram: Left ureteral stent in place. Lung bases: Lungs and pleural spaces clear. Normal heart size. No pericardial or pleural effusion. Liver: Normal morphology. No liver lesion. Patent hepatic vasculature. Biliary: No intrahepatic or extrahepatic biliary ductal dilatation. Normal gallbladder. Pancreas: Normal. Spleen: Normal. Adrenal glands: Normal. Kidneys and ureters: Right kidney normal. Left ureteral stent in place. Severe cortical thinning of the left kidney with severe hydronephrosis and left hydroureter. The left ureter remains dilated to a medially proximal to the left ureterovesical junction. No renal or ureteral calculus. Mild left urothelial thickening. Bladder: Significant soft tissue nodularity along the dome of the bladder. Pelvic organs: The cervix is present though the uterine corpus may be resected. Significant soft tissue nodularity is noted at the vaginal cuff/cervix, which extends along the superior portion of the bladder. The soft tissue implants may be partially intramural in the bladder. Ovaries not visualized. Bowel: Pelvic bowel loops have a kinked and tethered appearance suggesting significant adhesions. No bowel obstruction. The appendix is normal. Peritoneal cavity: Trace loculated fluid noted in the rectovaginal recess (series 3 image 311). No free intraperitoneal gas. Lymph nodes: No enlarged lymph nodes in the abdomen or pelvis. Vasculature: Aorta and IVC patent and normal in caliber. Abdominal wall: Small fat-containing umbilical hernia. Musculoskeletal: Bilateral pars defects of L5. No significant anterolisthesis of L5 on S1. Limbus L5 vertebral anatomy. IMPRESSION: 1. Suspected postsurgical changes of partial hysterectomy. Significant soft tissue nodularity at the vaginal cuff/residual cervix and along the bladder dome likely relates to the reported endometriosis. Invasive disease into the bladder wall is difficult to exclude and would be better demonstrated with pelvic MRI with a dedicated bladder protocol. 2. Ovaries may be surgically absent. 3. Severe left hydroureteronephrosis despite the presence of a left ureteral stent. Resulting severe cortical atrophy of the left kidney consistent with chronicity. The level of obstruction of the distal left ureter is immediately proximal to the left ureterovesical junction and is secondary to endometriosis. 4. Trace loculated fluid in the pelvis. 5. Evidence of adhesions with bowel tethering. No bowel obstruction. Electronically signed by: Elijah Garduno M.D. 03/14/2018 10:34 AM Dictated Date/Time: 03/14/2018 10:22 AM
== END | disposition home or self-care (01) ==
LOC: C.CTS 09:49
PROVIDERS: ATTEND Urology
DX: N80.9 Endometriosis, unspecified (principal); N13.30 Unspecified hydronephrosis

== ENCOUNTER → 2018-05-16 | Outpatient (CLI) | payer BC ==
[~2018-05-16] MED LIST changes: +CEPH500C2 PO; -CIPR-255 PO; +CYAN500T PO; -DIFLUCAN PO; +FUROSEMIDE 40 MG/4 ML VIAL IV ONE; +IBUP200C80 PO; +LUPRON; -MTR600X PO; +NORE5TAB5 PO; -OPTIRAY 320 IV PRN; -OXYC7.5T62 PO
--- NOTE | 2018-05-16 13:09 | DIAGNOSTIC IMAGING REPORT ---
RENAL SCAN DIURETIC (MAG 3) CLINICAL HISTORY: 43 years-old Female presenting with R30.0 Dysuria, history of endometriosis and left hydronephrosis. TECHNIQUE: A nuclear diuretic renal scan is performed following the IV administration of 8.6 mCi technetium 99m radiolabeled MAG3. Posterior blood flow images were acquired at one frame every two seconds for a total 30 frames. Posterior static cortical phase images were acquired every 5 minutes for a total of 45 minutes. IV Lasix was administered at 20 minutes. Renal curves were calculated. COMPARISON: Fluoroscopic images from 04/12/[address] from 03/14/2018. FINDINGS: On the blood flow phase images, prompt perfusion of the right kidney. Prompt although asymmetrically decreased perfusion of the left kidney. On the cortical phase images, asymmetrically decreased accumulation of radiotracer in the renal parenchyma and collecting system of the left kidney. Excretion from the left kidney appears delayed. Normal accumulation of radiotracer in the right renal parenchyma and excretion into the right renal collecting systems and bladder. Subsequently, clearance phase imaging demonstrates time to peak on the right measuring 3 minutes and on the left was not calculable. The time from max to half max pre-Lasix on the right measures 6 minutes and on the left was not calculable. The time to half post Lasix on the right measures 14.5 minutes and on the left measures 5.9 minutes. No abnormal retention of radiotracer in the collecting systems after furosemide administration. Right: Approximate counts at 3 minutes: 1550 Approximate counts at 20 minutes: 400 Approximate counts at peak: 1550 Ratio of counts at 20 minutes/3 minutes: 0.26 Ratio of counts at 20 minutes/peak: 0.26 Left: Approximate counts at 3 minutes: 400 Approximate counts at 20 minutes: 450 Approximate counts at peak: 450 Ratio of counts at 20 minutes/3 minutes: 1.13 Ratio of counts at 20 minutes/peak: 1.0 Split function measurements of 82% on the right and 18% on the left. Reference ranges: Normal time to peak: 3 to 5 minutes. Normal time from peak to half max pre-Lasix: 8-12 minutes. Ratio of counts at 20 minutes/3 minutes should be less than 0.8 and 20 minutes/peak less than 0.3. Washout of at least 50% of tracer within 10 minutes post Lasix normal; if greater than 50% retention between 10 to 20 minutes post Lasix, indeterminate for obstruction; if greater than 50% retention beyond 20 minutes, suspected obstruction. IMPRESSION: 1. Normal right renal scan. 2. Washout of at least 50% of radiotracer within 10 minutes of Lasix administration is compatible with a nonobstructed left urinary collecting system. Findings most consistent with severe chronic left renal dysfunction in the setting of prior severe obstruction. Given the presence of a ureteral stent, there is no current obstruction. 3. Relative renal function on the right 82% and on the left kidney 18%. Electronically signed by: Elijah Garduno M.D. 05/16/2018 1:08 PM Dictated Date/Time: 05/16/2018 12:57 PM
== END | disposition home or self-care (01) ==
LOC: C.NUCL 10:24
PROVIDERS: ATTEND Urology
DX: R30.0 Dysuria (principal)

== ENCOUNTER → 2018-06-11 | Outpatient (CLI) | payer BC ==
[~2018-06-11] MED LIST changes: -FUROSEMIDE 40 MG/4 ML VIAL IV ONE
== END | disposition home or self-care (01) ==
LOC: C.LABSPEC 17:05
PROVIDERS: ATTEND Urology
DX: N13.30 Unspecified hydronephrosis (principal)